=== PATIENT | male | born 1980 | race African-American/Black ===

== ENCOUNTER 2021-10-25 23:15 | Emergency (ER) | payer MEDICAID, OTHER ==
[~2021-10-25] VITALS: Ht 175.3 cm; Wt 113.0 kg
[~2021-10-25 23:15] MED LIST: IBUP-2029 MT
[2021-10-26 01:00] VITALS: BP 137/90
[2021-10-26] MEDS ORDERED: CYCLOBENZAPRINE 10MG TABLET PO ONE (01:00)
[2021-10-26] MEDS ORDERED: KETOROLAC 30MG/ML VIAL IM ONE (01:00)
[2021-10-26] MEDS ORDERED: NAPR-1176 MT (01:09)
[2021-10-26] MEDS ORDERED: CYCL10TA21 MT (01:09)
== END 2021-10-26 01:20 | disposition home or self-care (01) ==
LOC: ER 23:15
DX: M54.50 Low back pain, unspecified (principal); M54.2 Cervicalgia; F12.10 Cannabis abuse, uncomplicated; J45.909 Unspecified asthma, uncomplicated; Z98.890 Other specified postprocedural states
CPT/HCPCS: 71045; 96372; 99283; J1885

== ENCOUNTER 2021-11-22 05:36 | Emergency (ER) | payer OTHER, MEDICAID ==
[~2021-11-22] VITALS: Ht 175.3 cm; Wt 110.9 kg
[~2021-11-22 05:36] MED LIST changes: +CYCL10TA21 MT; +NAPR-1176 MT
[2021-11-22] MEDS ORDERED: KETOROLAC 60MG/2ML VIAL IM ONE (08:15)
[2021-11-22 08:33] VITALS: BP 131/86
[2021-11-22] MEDS ORDERED: METH-773 MT (09:15)
[2021-11-22] MEDS ORDERED: IBUP-2030 MT (09:15)
== END 2021-11-22 09:35 | disposition home or self-care (01) ==
LOC: ER 05:36
DX: M54.12 Radiculopathy, cervical region (principal); F12.10 Cannabis abuse, uncomplicated; J45.909 Unspecified asthma, uncomplicated; Z98.890 Other specified postprocedural states
CPT/HCPCS: 96372; 99283; J1885

== ENCOUNTER 2021-12-02 07:24 | Emergency (ER) | payer MEDICAID ==
[~2021-12-02] VITALS: Ht 172.7 cm; Wt 109.0 kg
[~2021-12-02 07:24] MED LIST changes: +IBUP-2030 MT; +METH-773 MT
[2021-12-02 07:30] VITALS: BP 141/92
[2021-12-02] MEDS ORDERED: IBUP-2028 PO (09:09)
== END 2021-12-02 09:37 | disposition home or self-care (01) ==
LOC: ER 07:24
DX: S93.491A Sprain of other ligament of right ankle, initial encounter (principal); M79.662 Pain in left lower leg; W01.0XXA Fall on same level from slipping, tripping and stumbling without subsequent striking against object, initial encounter; Y93.89 Activity, other specified; Y92.488 Other paved roadways as the place of occurrence of the external cause; F17.210 Nicotine dependence, cigarettes, uncomplicated; F12.90 Cannabis use, unspecified, uncomplicated; Z91.013 Allergy to seafood
CPT/HCPCS: 73610; 99283

== ENCOUNTER 2023-01-31 20:06 | Emergency (ER) | payer MEDICAID, OTHER ==
[~2023-01-31] VITALS: Ht 172.7 cm; Wt 119.8 kg
[~2023-01-31 20:06] MED LIST changes: +IBUP-2028 PO
[2023-01-31 20:43] VITALS: BP 131/92; PULSE 118; RESP 16; TEMP 97.7; O2SAT 97
[2023-01-31] MEDS ORDERED: METH-653 MT (22:21)
[2023-01-31] MEDS ORDERED: ACET-2708 MT (22:21)
[2023-01-31] MEDS ORDERED: IBUP-2029 MT (22:21)
[2023-01-31] MEDS ORDERED: ACETAMINOPHEN 325MG TABLET PO ONE (22:30)
[2023-01-31] MEDS ORDERED: KETOROLAC 60MG/2ML VIAL IM ONE (22:30)
[2023-01-31] MEDS ORDERED: METHOCARBAMOL 500MG TABLET PO ONE (22:30)
== END 2023-01-31 22:36 | disposition home or self-care (01) ==
LOC: ER 20:53
DX: S43.52XA Sprain of left acromioclavicular joint, initial encounter (principal); J45.909 Unspecified asthma, uncomplicated; F12.10 Cannabis abuse, uncomplicated; M25.512 Pain in left shoulder; Z79.899 Other long term (current) drug therapy; W18.39XA Other fall on same level, initial encounter; Y93.89 Activity, other specified; Y92.89 Other specified places as the place of occurrence of the external cause; Y99.8 Other external cause status
CPT/HCPCS: 73030; 96372; 99283; J1885; Z7610